=== PATIENT | male | born 1945 | race Two or more races ===

== ENCOUNTER 2017-09-30 08:07 | Emergency (ER) | payer MEDICARE, MEDICAID ==
[~2017-09-30] VITALS: Ht 177.8 cm; Wt 79.0 kg
[2017-09-30] MEDS ORDERED: METO25TA35 PO (08:39)
[2017-09-30] MEDS ORDERED: ASPI-515 PO (08:39)
[2017-09-30] MEDS ORDERED: LISI2.5T PO (08:39)
[2017-09-30] MEDS ORDERED: PRAV80TA2 PO (08:39)
[2017-09-30] MEDS ORDERED: PRED1DRO EACHEYE (08:41)
[2017-09-30] MEDS ORDERED: KETOROLAC 30 MG/1 ML ONE (08:56)
[2017-09-30] MEDS ORDERED: KETOROLAC 30 MG/1 ML IVPush ONE (09:00)
[2017-09-30] MEDS ORDERED: SODIUM CHLORIDE FLUSH 10ML SYR IVF ONE (09:00)
[2017-09-30 09:04] LABS: BASOPHILS # (AUTO) 0.06 x10^3/uL (0-0.1); BASOPHILS % (AUTO) 1 % (0-1); EOSINOPHILS # (AUTO) 0.26 x10^3/uL (0-0.4); EOSINOPHILS % (AUTO) 3 % (1-7); LYMPHOCYTES # (AUTO) 3.48 x10^3/uL (1-3.4); LYMPHOCYTES % (AUTO) 42 % (22-44); MD NO; MEAN CORPUSCULAR HEMOGLOBIN 31.2 pg (27.5-34.5); MEAN CORPUSCULAR HGB CONC 34.1 g/dL (33.2-36.2); MEAN CORPUSCULAR VOLUME 91.6 fL (81-97); MEAN PLATELET VOLUME 8.2 fL (7.4-10.4); MONOCYTES # (AUTO) 0.61 x10^3/uL (0.2-0.8); MONOCYTES % (AUTO) 7 % (2-9); NEUTROPHILS # (AUTO) 3.91 x10^3/uL (1.8-6.8); NEUTROPHILS % (AUTO) 47 % (42-75); PLATELET COUNT 309 x10^3/uL (130-400); RED BLOOD COUNT 5.69 x10^6/uL (4.38-5.82); RED CELL DISTRIBUTION WIDTH 13.3 % (9.4-14.8)
[2017-09-30 09:17] LABS: ALANINE AMINOTRANSFERASE 20 U/L (12-78); ALBUMIN 3.8 g/dL (3.4-5.0); ANION GAP 4 mmol/L (5-15); CALCIUM 8.5 mg/dL (8.5-10.1); CHLORIDE 104 mmol/L (98-107)
[2017-09-30 09:21] LABS: ALKALINE PHOSPHATASE 93 U/L (45-117); BILIRUBIN,TOTAL 1.8 mg/dL (0.2-1.0); TOTAL PROTEIN 8.2 g/dL (6.4-8.2); TROPONIN I < 0.015 ng/mL (0.000-0.045)
[2017-09-30] MEDS ORDERED: MORPHINE SULFATE 4 MG/ML, 1ML ONE (09:37)
[2017-09-30] MEDS ORDERED: morphine SULFATE 10 MG/ML, 1ML IVPush ONE (10:00)
[2017-09-30 10:51] VITALS: BP 168/83
== END 2017-09-30 11:51 | disposition home or self-care (01) ==
LOC: ED 10:01
DX: R07.9 Chest pain, unspecified (principal); I10 Essential (primary) hypertension; I25.2 Old myocardial infarction; I25.10 Atherosclerotic heart disease of native coronary artery without angina pectoris
CPT/HCPCS: 36415; 71045; 80053; 83880; 84484; 85025; 85379; 93005; 96374; 96375; 99285; J1885; J2270

== ENCOUNTER 2019-04-17 16:17 | Observation (INO) | payer MEDICARE, MEDICAID ==
[~2019-04-17] VITALS: Ht 177.8 cm; Wt 78.2 kg
[~2019-04-17 16:17] MED LIST: ASPI-515 PO; LISI2.5T PO; METO25TA35 PO; PRAV80TA2 PO; PRED1DRO EACHEYE
[2019-04-17] MEDS ORDERED: ACETAMINOPHEN 500 MG TABLET PO ONE (17:30)
[2019-04-17 17:55] LABS: MEAN CORPUSCULAR HGB CONC 34.5 g/dL (33.2-36.2); MEAN CORPUSCULAR VOLUME 92.7 fL (81-97); MEAN PLATELET VOLUME 7.9 fL (7.4-10.4); PLATELET COUNT 300 x10^3/uL (130-400); RED BLOOD COUNT 5.29 x10^6/uL (4.38-5.82); RED CELL DISTRIBUTION WIDTH 12.7 % (9.4-14.8)
[2019-04-17] MEDS ORDERED: ACETAMINOPHEN 500 MG TABLET ONE (17:55)
[2019-04-17 18:03] LABS: ALBUMIN 3.6 g/dL (3.4-5.0); ANION GAP 7 mmol/L (5-15); CALCIUM 8.7 mg/dL (8.5-10.1); CHLORIDE 103 mmol/L (98-107); CREATININE 1.13 mg/dL (0.7-1.3)
[2019-04-17 18:19] LABS: MICROSCOPIC NOT IND
[2019-04-17 18:24] LABS: MD YES
[2019-04-17 18:26] LABS: <RBC MORPHOLOGY> NORMAL; BAND#(MANUAL) 0.88 x10^3/uL; BANDS%(MANUAL) 4 % (0-7); EOS#(MANUAL) 0.44 x10^3/uL (0.0-0.4); EOS% (MANUAL) 2 % (1-7); LYMPH#(MANUAL) 0.88 x10^3/uL (1-3.4); LYMPHS% (MANUAL) 4 % (22-44); MONOS#(MANUAL) 0.44 x10^3/uL (0.3-2.7); MONOS% (MANUAL) 2 % (2-9); SEG#(MANUAL) 19.36 x10^3/uL (1.8-6.8); SEGS% (MANUAL) 88 % (42-75)
[2019-04-17 18:27] LABS: <PLATELET ESTIMATE> ADEQUATE; <PLT MORPHOLOGY> NORMAL PLT MORPH
[2019-04-17 18:30] LABS: CULTURE INDICATED? NO
--- NOTE | 2019-04-17 18:58 | NUR ---
RECEIVED REPORT FROM TIMO GREENE.
--- NOTE | 2019-04-17 19:05 | NUR ---
Provided bedside report to TIMO Hatch. All questions answered. TIMO Hatch to assume care of pt at this time. NADN. No other needs expressed.
[2019-04-17] MEDS ORDERED: IBUPROFEN 800 MG TABLET ONE (19:17)
--- NOTE | 2019-04-17 19:24 | NUR ---
PT MEDICATED PER AUG. PT BLADDER SCAN RESULT 56ML. PT TO CT.
[2019-04-17] MEDS ORDERED: IBUPROFEN 800 MG TABLET PO ONE (19:30)
[2019-04-17] MEDS ORDERED: OMNIPAQUE 350 MG/ML, 100ML BOTTLE ONE (19:45)
[2019-04-17] MEDS ORDERED: METF500T17 PO (20:12)
[2019-04-17] MEDS ORDERED: CEFAZOLIN PMX 1GM/50ML 0 ML ONE (20:23)
[2019-04-17] MEDS ORDERED: CEFTRIAXONE PMX 1GM/50ML 50 ML ONE (20:28)
[2019-04-17] MEDS ORDERED: CEFTRIAXONE PMX 1GM/50ML 50 ML IV ONE (20:30)
[2019-04-17] MEDS ORDERED: AZITHROMYCIN 500 MG in SODIUM CHLORIDE 0.9% 250 ML IV ONE (20:30)
--- NOTE | 2019-04-17 20:38 | NUR ---
BLOOD CULTURES COMPLETED PRIOR TO ABX ADMINISTRATION. PT RESTING ON [facility].
--- NOTE | 2019-04-17 20:54 | NUR ---
REPORT GIVEN TO TIMO WILL.
--- NOTE | 2019-04-17 21:05 | NUR ---
GIULIANA STARTED ON PT. PT TO ROOM.
[2019-04-17 21:20] VITALS: BP 117/71
[2019-04-17] MEDS ORDERED: TEMAZEPAM 15 MG CAPSULE PO PRN (23:30)
[2019-04-17] MEDS ORDERED: ENALAPRILAT 1.25 MG/ML, 2ML IVPush PRN (23:30)
[2019-04-17] MEDS ORDERED: LIDODERM 5% PATCH TD PRN (23:30)
[2019-04-17] MEDS ORDERED: DOCUSATE 100 MG CAPSULE PO PRN (23:30)
[2019-04-17] MEDS ORDERED: ACETAMINOPHEN 325 MG TABLET PO PRN (23:30)
[2019-04-17] MEDS ORDERED: ONDANSETRON ODT 4 MG PO PRN (23:30)
[2019-04-17] MEDS: ENOXAPARIN 40 MG/0.4 ML SQ SCH (23:50)
[2019-04-17] MEDS: SODIUM CHLORIDE 0.9% 1,000 ML IV SCH (23:51)
[2019-04-18 00:32] LABS: HEMOGLOBIN A1C 6.4 % (4.2-6.3)
[2019-04-18 00:42] LABS: RAPID INFLUENZA A Negative (Negative); RAPID INFLUENZA B Negative (Negative)
[2019-04-18 02:12] VITALS: BP 126/75
[2019-04-18 06:06] LABS: MEAN CORPUSCULAR HEMOGLOBIN 32.3 pg (27.5-34.5); MEAN CORPUSCULAR HGB CONC 33.9 g/dL (33.2-36.2); MEAN CORPUSCULAR VOLUME 95.2 fL (81-97); PLATELET COUNT 280 x10^3/uL (130-400); RED BLOOD COUNT 4.68 x10^6/uL (4.38-5.82); RED CELL DISTRIBUTION WIDTH 12.8 % (9.4-14.8)
[2019-04-18 06:16] LABS: ANION GAP 4 mmol/L (5-15); CALCIUM 7.9 mg/dL (8.5-10.1); CHLORIDE 106 mmol/L (98-107)
[2019-04-18 06:18] LABS: CREATININE 1.01 mg/dL (0.7-1.3)
[2019-04-18 06:35] LABS: MD YES
[2019-04-18 06:37] LABS: BAND#(MANUAL) 0.39 x10^3/uL; BANDS%(MANUAL) 2 % (0-7); LYMPH#(MANUAL) 3.32 x10^3/uL (1-3.4); LYMPHS% (MANUAL) 17 % (22-44); MONOS#(MANUAL) 0.98 x10^3/uL (0.3-2.7); MONOS% (MANUAL) 5 % (2-9); SEG#(MANUAL) 14.82 x10^3/uL (1.8-6.8); SEGS% (MANUAL) 76 % (42-75)
[2019-04-18 06:38] LABS: <PLATELET ESTIMATE> ADEQUATE; <PLT MORPHOLOGY> NORMAL PLT MORPH; <RBC MORPHOLOGY> NORMAL
[2019-04-18] MEDS: INSULIN LISPRO 100 UNITS/ML, PEN SQ-INSULIN SCH ×4 (07:00→21:00)
[2019-04-18 07:24] VITALS: BP 127/71
[2019-04-18] MEDS: SODIUM CHLORIDE 0.9% 1,000 ML IV SCH ×2 (08:16→16:16)
[2019-04-18] MEDS: LISINOPRIL 40 MG TABLET PO SCH (08:17)
[2019-04-18] MEDS: METOPROLOL TARTRATE 50 MG TABLET PO SCH (08:17)
[2019-04-18] MEDS: ASPIRIN 81 MG TABLET EC PO SCH (08:17)
[2019-04-18 13:12] VITALS: BP 139/72
[2019-04-18] MEDS: CEFTRIAXONE PMX 1GM/50ML 50 ML IV SCH (14:15)
[2019-04-18] MEDS: DOXYCYCLINE 100 MG in DEXTROSE 5% 250 ML IV SCH (14:48)
[2019-04-18 19:49] VITALS: BP 155/74
[2019-04-19] MEDS: SODIUM CHLORIDE 0.9% 1,000 ML IV SCH ×2 (00:29→09:45)
[2019-04-19] MEDS: PRAVASTATIN 40 MG TABLET PO SCH ×2 (00:51→20:40)
[2019-04-19] MEDS: METOPROLOL TARTRATE 50 MG TABLET PO SCH ×3 (00:52→20:40)
[2019-04-19] MEDS: ENOXAPARIN 40 MG/0.4 ML SQ SCH ×2 (00:52→23:08)
[2019-04-19 00:55] VITALS: BP 135/70
[2019-04-19] MEDS: DOXYCYCLINE 100 MG in DEXTROSE 5% 250 ML IV SCH ×2 (02:33→14:00)
[2019-04-19 05:24] LABS: BASOPHILS # (AUTO) 0.02 x10^3/uL (0-0.1); BASOPHILS % (AUTO) 0 % (0-1); EOSINOPHILS # (AUTO) 0.34 x10^3/uL (0-0.4); EOSINOPHILS % (AUTO) 4 % (1-7); LYMPHOCYTES # (AUTO) 3.16 x10^3/uL (1-3.4); LYMPHOCYTES % (AUTO) 32 % (22-44); MD NO; MEAN CORPUSCULAR HEMOGLOBIN 31.4 pg (27.5-34.5); MEAN CORPUSCULAR HGB CONC 33.4 g/dL (33.2-36.2); MEAN CORPUSCULAR VOLUME 94.1 fL (81-97); MEAN PLATELET VOLUME 7.6 fL (7.4-10.4); MONOCYTES # (AUTO) 0.77 x10^3/uL (0.2-0.8); MONOCYTES % (AUTO) 8 % (2-9); NEUTROPHILS # (AUTO) 5.49 x10^3/uL (1.8-6.8); NEUTROPHILS % (AUTO) 56 % (42-75); PLATELET COUNT 267 x10^3/uL (130-400); RED BLOOD COUNT 4.42 x10^6/uL (4.38-5.82); RED CELL DISTRIBUTION WIDTH 12.8 % (9.4-14.8)
[2019-04-19 05:35] LABS: ALBUMIN 2.6 g/dL (3.4-5.0); ANION GAP 6 mmol/L (5-15); CALCIUM 7.6 mg/dL (8.5-10.1); CHLORIDE 109 mmol/L (98-107)
[2019-04-19 05:38] LABS: ALANINE AMINOTRANSFERASE 7 U/L (12-78); ALKALINE PHOSPHATASE 64 U/L (45-117); BILIRUBIN,TOTAL 0.8 mg/dL (0.2-1.0); CREATININE 0.87 mg/dL (0.7-1.3); TOTAL PROTEIN 6.2 g/dL (6.4-8.2)
[2019-04-19 06:45] VITALS: BP 130/84
[2019-04-19] MEDS: INSULIN LISPRO 100 UNITS/ML, PEN SQ-INSULIN SCH ×4 (07:00→20:39)
[2019-04-19] MEDS: LISINOPRIL 40 MG TABLET PO SCH (09:44)
[2019-04-19] MEDS: ASPIRIN 81 MG TABLET EC PO SCH (09:44)
[2019-04-19] MEDS ORDERED: TAMSULOSIN 0.4 MG CAP.ER.24H PO SCH (11:00)
[2019-04-19] MEDS: CEFTRIAXONE PMX 1GM/50ML 50 ML IV SCH (11:58)
[2019-04-19 13:07] VITALS: BP 183/69
[2019-04-19 19:45] VITALS: BP 165/76
[2019-04-19] MEDS ORDERED: TERAZOSIN 5MG CAPSULE PO SCH (21:00)
[2019-04-20 01:43] VITALS: BP 132/71
[2019-04-20] MEDS: DOXYCYCLINE 100 MG in DEXTROSE 5% 250 ML IV SCH ×2 (02:16→14:00)
[2019-04-20] MEDS: INSULIN LISPRO 100 UNITS/ML, PEN SQ-INSULIN SCH ×2 (07:00→12:24)
[2019-04-20 07:34] VITALS: BP 122/71
[2019-04-20] MEDS: METOPROLOL TARTRATE 50 MG TABLET PO SCH ×2 (09:00→09:07)
[2019-04-20] MEDS: ASPIRIN 81 MG TABLET EC PO SCH (09:09)
[2019-04-20] MEDS: LISINOPRIL 40 MG TABLET PO SCH (09:09)
[2019-04-20 12:58] VITALS: BP 142/76
[2019-04-20] MEDS ORDERED: DOXY100T PO (12:58)
[2019-04-20] MEDS ORDERED: CEFD300C37 PO (12:58)
[2019-04-20] MEDS ORDERED: METO25TA35 PO (12:58)
[2019-04-20] MEDS ORDERED: DOCU100C33 PO (12:58)
[2019-04-20] MEDS ORDERED: TERA5CAP3 PO (12:58)
[2019-04-20] MEDS: CEFTRIAXONE PMX 1GM/50ML 50 ML IV SCH (13:30)
== END 2019-04-20 16:50 | disposition home or self-care (01) ==
LOC: ED 20:45 → EDIP 21:12 → INTOOBSV 21:12 → 3N 21:18 → DCLOUNGE 04-20 16:26
PROVIDERS: ADMIT Internal Medicine; ATTEND Internal Medicine
DX: A41.9 Sepsis, unspecified organism (principal); J18.9 Pneumonia, unspecified organism; E87.1 Hypo-osmolality and hyponatremia; E11.9 Type 2 diabetes mellitus without complications; E78.5 Hyperlipidemia, unspecified; G89.29 Other chronic pain; I10 Essential (primary) hypertension; I25.10 Atherosclerotic heart disease of native coronary artery without angina pectoris; I25.2 Old myocardial infarction; J06.9 Acute upper respiratory infection, unspecified; M51.36 Other intervertebral disc degeneration, lumbar region; N40.1 Benign prostatic hyperplasia with lower urinary tract symptoms; R39.15 Urgency of urination; R36.9 Urethral discharge, unspecified; N53.12 Painful ejaculation; R32 Unspecified urinary incontinence; Z95.5 Presence of coronary angioplasty implant and graft
CPT/HCPCS: 36415; 71045; 74177; 80048; 80053; 81003; 82040; 82962; 83036; 83605; 84145; 85025; 87040; 87400; 96365; 96366; 96367; 96372; 97165; 99285; G0103; G0378; J0456; J0696; J1650; J1815; J7030; J7050; J7060; Q9967